=== PATIENT | female | born 1955 | race Asian ===

== ENCOUNTER → 2019-05-18 | Outpatient (CLI) | payer MEDICAID ==
[2019-05-18 12:41] LABS: PROTEIN,URINE RANDOM 15 mg/dL (0-11.9)
[2019-05-18 12:54] LABS: APPEARANCE,URINE CLEAR (CLEAR); BILIRUBIN,URINE NEGATIVE (NEGATIVE); GLUCOSE, URINE (UA) NEGATIVE (NEGATIVE); KETONES,URINE NEGATIVE (NEGATIVE); LEUKOCYTE ESTERASE ,URINE SMALL (NEGATIVE); NITRATE,URINE NEGATIVE (NEGATIVE); OCCULT BLOOD,URINE NEGATIVE (NEGATIVE); PROTEIN,URINE NEGATIVE (NEGATIVE); UROBILINOGEN,URINE 0.2 mg/dL (<=1.0)
[2019-05-18 12:57] LABS: CHOL/HDL RATIO 3.5 (3.9-5.7)
[2019-05-18 13:06] LABS: URIC ACID 6.6 mg/dL (2.6-7.2)
[2019-05-18 13:43] LABS: BACTERIA,URINE None Seen /HPF (None Seen); RBC,URINE None Seen /HPF (0-2); SQUAMOUS EPITHELIAL CELL,UR Few /LPF (None Seen)
== END | disposition home or self-care (01) ==
LOC: MSR 10:19
PROVIDERS: ATTEND Hospitalist
DX: E78.01 Familial hypercholesterolemia (principal); N18.3 Chronic kidney disease, stage 3 (moderate)
CPT/HCPCS: 76770; 82043; 82570; 84156; 84166; 84550; 86335

== ENCOUNTER → 2021-02-14 | Outpatient (CLI) | payer MEDICAID | END | disposition home or self-care (01) | LOC: RADPV 16:31 | PROVIDERS: ATTEND Hospitalist | DX: R39.81 Functional urinary incontinence (principal); Z90.5 Acquired absence of kidney | CPT/HCPCS: 76770 ==